=== PATIENT | male | born 1995 | race Caucasian/White ===

== ENCOUNTER 2018-10-21 12:53 | Emergency (ER) | payer OTHER ==
[~2018-10-21] VITALS: Ht 170.2 cm; Wt 86.2 kg
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
--- NOTE | 2018-10-21 14:09 | NUR ---
Patient discharged to home in stable condition. Written and verbal after care instructions given. Patient verbalizes understanding of instruction.
[2018-10-21 14:10] VITALS: BP 144/70
== END 2018-10-21 14:10 | disposition home or self-care (01) ==
LOC: ER 12:58
DX: S60.222A Contusion of left hand, initial encounter (principal); S80.02XA Contusion of left knee, initial encounter; S90.31XA Contusion of right foot, initial encounter; F20.9 Schizophrenia, unspecified; F31.9 Bipolar disorder, unspecified; Z88.0 Allergy status to penicillin; V03.99XA Pedestrian with other conveyance injured in collision with car, pick-up truck or van, unspecified whether traffic or nontraffic accident, initial encounter; Y93.89 Activity, other specified; Y92.413 State road as the place of occurrence of the external cause; Y99.8 Other external cause status
CPT/HCPCS: 73130-TC; 73564-TC; 73630-TC

== ENCOUNTER 2019-01-03 15:05 | Emergency (ER) | payer OTHER ==
[~2019-01-03] VITALS: Ht 170.2 cm; Wt 84.4 kg
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
--- NOTE | 2019-01-03 16:34 | NUR ---
BARLEY STEEPER AT BEDSIDE
--- NOTE | 2019-01-03 16:35 | NUR ---
URINE COLLECTED SENT TO LAB
[2019-01-03 16:43] LABS: BASOPHILS # (AUTO) 0.1 /CMM (0.0-0.2); NEUTROPHILS # (AUTO) 6.4 /CMM (1.8-8.9)
[2019-01-03 16:46] LABS: BASOPHILS % (AUTO) 0.6 % (0.0-2.0); EOSINOPHILS % (AUTO) 1.8 % (0.0-6.0); HEMATOCRIT 44 % (39-51); LYMPHOCYTES # (AUTO) 2.4 /CMM (0.8-4.8); LYMPHOCYTES % (AUTO) 23.6 % (20.0-44.0); MEAN CORPUSCULAR HGB CONC 34 g/dl (31.0-36.0); MEAN CORPUSCULAR VOLUME 89 fL (80-96); MONOCYTES % (AUTO) 9.8 % (2.0-12.0); NEUTROPHILS % (AUTO) 64.2 % (43.0-81.0); PLATELET COUNT (AUTO) 273 /CMM (150-450); RED BLOOD CELL COUNT(AUTO) 4.96 MIL/uL (4.5-6.0)
[2019-01-03 16:51] LABS: CALCIUM, SERUM 8.8 mg/dL (8.5-10.1); CARBON DIOXIDE 30 mmol/L (21-32); CHLORIDE 103 mmol/L (98-107); CREATININE 0.8 mg/dL (0.6-1.3); GLUCOSE 109 mg/dL (74-106); POTASSIUM 4.5 mmol/L (3.5-5.1); SODIUM SERUM 140 mmol/L (136-145); UREA NITROGEN, BLOOD 9 mg/dL (7-18)
[2019-01-03 17:04] LABS: APPEARANCE,URINE Clear (CLEAR); BILIRUBIN,URINE Negative (NEGATIVE); BLOOD, URINE Trace-intact Ery/uL (NEGATIVE); COLOR,URINE Yellow (YELLOW); KETONES,URINE Negative (NEGATIVE); LEUKOCYTE ESTERASE ,URINE Negative (NEGATIVE); NITRITE, URINE Negative (NEGATIVE); PH,URINE 6.5 (5.0-8.0); PROTEIN,URINE Negative (NEGATIVE); UGLUCOSE Negative (NEGATIVE); UROBILINOGEN,URINE 0.2 EU/dL (0.2)
[2019-01-03 17:05] LABS: ALANINE AMINOTRANSFERASE 48 U/L (12-78); ALBUMIN 4.5 g/dL (3.4-5.0); ALKALINE PHOSPHATASE 124 U/L (46-116); ASPARTATE AMINOTRANSFERASE 29 U/L (15-37); BILIRUBIN,DIRECT 0.1 mg/dL (0.0-0.2); BILIRUBIN,TOTAL 0.2 mg/dL (0.2-1.0); TOTAL PROTEIN, SERUM 8.1 g/dL (6.4-8.2)
[2019-01-03 17:06] LABS: ACETAMINOPHEN 0 ug/ml (10-30); SALICYLATE 1.2 mg/dL (2.8-20.0)
[2019-01-03 17:07] LABS: ALCOHOL, BLOOD < 3 mg/dL (0-0)
[2019-01-03 17:24] LABS: BACTERIA,URINE Few /HPF (None Seen); SQUAMOUS EPITHELIAL CELL,UR Few /HPF (None Seen); WBC,URINE 0-2 /HPF (0-3)
--- NOTE | 2019-01-03 18:00 | NUR ---
CALLED JACQUELINE FOR CRISIS EVALUATION
--- NOTE | 2019-01-03 18:22 | NUR ---
WAITING FOR CRISIS TEAM TO COME BY. PATIENT WANTS TO BE PLACED ON VOLUNTARY HOLD. DANGER TO OTHERS
--- NOTE | 2019-01-03 18:22 | NUR ---
DINNER PROVIDED AT BEDSIDE
--- NOTE | 2019-01-03 18:58 | NUR ---
PINKY AT BEDSIDE
[2019-01-03 21:15] VITALS: BP 144/84
--- NOTE | 2019-01-03 21:19 | NUR ---
REPORT GIVEN TO JOSEY GENTILE FOR REPORT. ROOM 8B.
--- NOTE | 2019-01-03 22:29 | NUR ---
[phone]
--- NOTE | 2019-01-04 00:39 | NUR ---
EMT OF AMBULSrinivasan AT BEDSIDE TO EQUINE DENTIST THE PATIENT. REPORT GIVEN. PATIENT IS TO BE TRANSFERED TO [facility], ROOM 8B. TRANSPORTED VIA GURNEY. PATIENT CLAIMED ALL BELONGINGS NOTED AND ACCOUNTED FOR. LEFT ER AT THIS TIME.
== END 2019-01-04 00:39 ==
LOC: ER 15:07
DX: S16.1XXA Strain of muscle, fascia and tendon at neck level, initial encounter (principal); S70.01XA Contusion of right hip, initial encounter; S69.81XA Other specified injuries of right wrist, hand and finger(s), initial encounter; R45.851 Suicidal ideations; F41.9 Anxiety disorder, unspecified; F31.9 Bipolar disorder, unspecified; F20.0 Paranoid schizophrenia; Z88.0 Allergy status to penicillin; W18.09XA Striking against other object with subsequent fall, initial encounter; Y93.01 Activity, walking, marching and hiking; Y92.89 Other specified places as the place of occurrence of the external cause; Y99.8 Other external cause status
CPT/HCPCS: 36415; 73110; 73501; 80048; 80076; 80305; 80307; 80329; 81001; 85025; 99285; G0480; 81000-TC

== ENCOUNTER 2019-08-27 17:49 | Inpatient (IN) | payer OTHER ==
[~2019-08-27] VITALS: Ht 170.2 cm; Wt 67.1 kg
[2019-08-27] MEDS ORDERED: ONDANSETRON HCL/PF 4 MG/2 ML VIAL ONE (18:13)
[2019-08-27 18:23] LABS: BASOPHILS % (AUTO) 0.1 % (0.0-2.0); EOSINOPHILS % (AUTO) 0.1 % (0.0-6.0); HEMATOCRIT 47 % (39-51); HEMOGLOBIN 15.8 g/dL (13.5-17.5); LYMPHOCYTES # (AUTO) 0.8 /CMM (0.8-4.8); LYMPHOCYTES % (AUTO) 3.5 % (20.0-44.0); MEAN CORPUSCULAR HGB CONC 34 g/dl (31.0-36.0); MEAN CORPUSCULAR VOLUME 89 fL (80-96); MONOCYTES # (AUTO) 1.3 /CMM (0.1-1.30); MONOCYTES % (AUTO) 6.1 % (2.0-12.0); NEUTROPHILS # (AUTO) 19.4 /CMM (1.8-8.9); NEUTROPHILS % (AUTO) 90.2 % (43.0-81.0); PLATELET COUNT (AUTO) 226 /CMM (150-450); RED BLOOD CELL COUNT(AUTO) 5.24 MIL/uL (4.5-6.0); WHITE BLOOD COUNT (AUTO) 21.6 K/uL (4.3-11.0)
[2019-08-27] MEDS ORDERED: ONDANSETRON HCL/PF 4 MG/2 ML VIAL IVP ONE (18:30)
[2019-08-27] MEDS ORDERED: IV NS 0.9% 1,000 ML BAG IV ONE (18:30)
[2019-08-27] MEDS ORDERED: LORAZEPAM INJ 2 MG/ML VIAL IV ONE (18:30)
[2019-08-27 18:32] LABS: CALCIUM, SERUM 9.3 mg/dL (8.5-10.1); CARBON DIOXIDE 23 mmol/L (21-32); CHLORIDE 102 mmol/L (98-107); CREATININE 1.3 mg/dL (0.6-1.3); GLUCOSE 139 mg/dL (74-106); POTASSIUM 3.6 mmol/L (3.5-5.1); SODIUM SERUM 140 mmol/L (136-145); UREA NITROGEN, BLOOD 21 mg/dL (7-18)
[2019-08-27] MEDS ORDERED: LORAZEPAM INJ 2 MG/ML VIAL ONE (18:33)
[2019-08-27 18:38] LABS: ALANINE AMINOTRANSFERASE 35 U/L (12-78); ALBUMIN 4.6 g/dL (3.4-5.0); ALCOHOL, BLOOD < 3 mg/dL (0-0); ALKALINE PHOSPHATASE 108 U/L (46-116); ASPARTATE AMINOTRANSFERASE 21 U/L (15-37); BILIRUBIN,DIRECT 0.3 mg/dL (0.0-0.2); BILIRUBIN,TOTAL 1.1 mg/dL (0.2-1.0); TOTAL PROTEIN, SERUM 8.3 g/dL (6.4-8.2)
[2019-08-27 18:40] LABS: ACETAMINOPHEN 0 ug/ml (10-30); SALICYLATE < 0.2 mg/dL (2.8-20.0)
[2019-08-27] MEDS ORDERED: HYDR-500 MT (18:51)
[2019-08-27] MEDS ORDERED: SERT50TA12 MT (18:51)
--- NOTE | 2019-08-27 18:52 | NUR ---
CALLED NURSING SUP FOR ICU BED.
[2019-08-27 18:53] LABS: APPEARANCE,URINE Clear (CLEAR); BILIRUBIN,URINE Negative (NEGATIVE); BLOOD, URINE Negative Ery/uL (NEGATIVE); COLOR,URINE Orange (YELLOW); KETONES,URINE 15 (NEGATIVE); LEUKOCYTE ESTERASE ,URINE Negative (NEGATIVE); NITRITE, URINE Negative (NEGATIVE); PROTEIN,URINE 30 mg/dl (NEGATIVE); UGLUCOSE Negative (NEGATIVE); UROBILINOGEN,URINE 0.2 EU/dL (0.2)
--- NOTE | 2019-08-27 18:54 | NUR ---
BIBRA60 FROM HOME, "COLAPSED" POSSIBLE OVERDOSE TO SEROQUEL, PER EMS PT WAS BELLIGERENT UPON EMS ARRIVAL GIVEN VERSED 5MG IM. BG 140. PT WILL OPEN EYES UPON VERBAL STIMULI & WILL GO BACK TO SLEEP. RR EVEN & UNLABORED. PLACED ON FINANCIAL AID OFFICER, ST. PT SEEN & EVAL'D BY AC MIRELES. MEDICATED ORDERED. PLACED ON SZ PRECAUTION. SITTER AT BS.
--- NOTE | 2019-08-27 19:30 | NUR ---
PT ASLEEP, EYES CLOSED BUT EASILY AROUSABLE BY VERBAL STIMULI AND WILL GO BACK TO SLEEP. RR EVEN & UNLABORED. NO RESP DISTRESS NOTED. WILL CONT TO MONITOR.
--- NOTE | 2019-08-27 19:33 | NUR ---
PAGED [facility].
--- NOTE | 2019-08-27 19:34 | NUR ---
NURSING SUP GAVE ICU 263.
--- NOTE | 2019-08-27 19:46 | NUR ---
SPOKE TO ALTA, MANAGER INPATIENT FOR [employer] MANAGEMENT.
[2019-08-27 19:51] LABS: BACTERIA,URINE Rare /HPF (None Seen); RBC,URINE 0-2 /HPF (0-2); SQUAMOUS EPITHELIAL CELL,UR Rare /HPF (None Seen)
[2019-08-27 19:52] LABS: MUCUS,URINE Few /LPF (None Seen); URINE AMORPHOUS URATE Few /HPF (None Seen)
--- NOTE | 2019-08-27 19:57 | NUR ---
VERONIKA DEE (BROTHER)
--- NOTE | 2019-08-27 20:18 | NUR ---
REPORT GIVEN TO JOSEY LANDRUM FOR HERLINDA.
[2019-08-27] MEDS ORDERED: IV NS 0.9% 1,000 ML IV PRN (20:58)
[2019-08-27] MEDS ORDERED: ACETAMINOPHEN 650 MG/SUPP.RECT RC PRN (21:00)
[2019-08-27] MEDS ORDERED: ONDANSETRON HCL/PF 4 MG/2 ML VIAL IVP PRN (21:00)
--- NOTE | 2019-08-27 21:30 | NUR ---
PT ASLEEP, EASILY AWAKEN BY VERBAL STIMULI, WILL OPEN EYES & WILL GO BACK TO SLEEP. RR EVEN & UNLABORED. ON TELE, ST. WILL CONT TO MONITOR.
--- NOTE | 2019-08-27 22:18 | NUR ---
PT DOWNGRADED TO [facility]. REPORT GIVEN TO JOSEY PIPER FOR HERLINDA
[2019-08-27 22:35] VITALS: BP 113/60
--- NOTE | 2019-08-27 23:06 | NUR ---
RN NOTE SPOKE TO JOHN FROM POISON CONTROL. UPDATED ON PATIENT'S CURRENT STATUS AND RESULTED EKG. WITH RECCOMENDATION TO DO REPEAT 12 LEAD EKG AND FOLLOW UP.
[2019-08-27] MEDS: IV NS 0.9% 1,000 ML IV PRN (23:18)
--- NOTE | 2019-08-27 23:18 | NUR ---
RN NOTE SEEN AND EXAMINED BY DR. ALATORRE WITH NEW ORDER TO INCREASE FLUIDS TO NS @ 150CC/HOUR. ORDER NOTED AND CARRIED OUT.
--- NOTE | 2019-08-27 23:30 | NUR ---
RN NOTE NEW ORDER FROM DR. ALATORRE. IF QTC > 500, ADMINISTER 2G OF MAGNESIUM. IF QRS > 120, ADMINISTER 2 AMPS OF BICARB. ORDER NOTED AND CARRIED OUT.
--- NOTE | 2019-08-27 23:37 | NUR ---
RN NOTE 12 LEAD EKG RESULTED. QRS 114. QTC 465. SPOKE TO JOHN FROM POISON CONTROL WITH RECOMMENDATION TO DO REPEAT 12 LEAD EKG IN 2 HOURS. ORDER NOTED AND CARRIED OUT.
[2019-08-28] VITALS: BP 118/68
[2019-08-28] MEDS: LORAZEPAM INJ 2 MG/ML VIAL IV PRN (01:10)
--- NOTE | 2019-08-28 01:10 | NUR ---
RN NOTE HEART RATE NOTED TO BE 135-140. PT NOTED OT BE SLIGHTLY AGITATED. ADMINISTERED ATIVAN IV PRN ORDERED. WILL CONTINUE TO MONITOR PATIENT.
[2019-08-28] MEDS ORDERED: Magnesium 1GM/D5W 100ML PREMIX PIGGYBACK IV ONE (02:00)
[2019-08-28] MEDS ORDERED: SODIUM BICARBONATE SYR 50 MEQ/50 ML DISP.SYRIN IV ONE (02:00)
--- NOTE | 2019-08-28 02:03 | NUR ---
RN NOTE 12 LEAD EKG RESULTED, NOTIFIED POISON CONTROL WITH ORDER TO ADMINISTER 2 AMPS OF BICARB AND 2G OF MAGNESIUM IV. ORDER CARRIED OUT.
[2019-08-28] MEDS ORDERED: Magnesium 1GM/D5W 100ML PREMIX 200 ML IV ONE (02:12)
[2019-08-28] MEDS ORDERED: SODIUM BICARBONATE SYR 50 MEQ/50 ML DISP.SYRIN ONE ×2 (02:13→02:14)
--- NOTE | 2019-08-28 02:17 | NUR ---
RN NOTE WITH ORDER TO DO REPEAT EKG AT 0330.
[2019-08-28 05:58] LABS: BASOPHILS % (AUTO) 0.1 % (0.0-2.0); HEMATOCRIT 42 % (39-51); HEMOGLOBIN 14.2 g/dL (13.5-17.5); LYMPHOCYTES # (AUTO) 0.5 /CMM (0.8-4.8); LYMPHOCYTES % (AUTO) 2.6 % (20.0-44.0); MEAN CORPUSCULAR HGB CONC 34 g/dl (31.0-36.0); MEAN CORPUSCULAR VOLUME 88 fL (80-96); MONOCYTES # (AUTO) 1.1 /CMM (0.1-1.30); MONOCYTES % (AUTO) 5.2 % (2.0-12.0); NEUTROPHILS # (AUTO) 19.3 /CMM (1.8-8.9); NEUTROPHILS % (AUTO) 92.1 % (43.0-81.0); PLATELET COUNT (AUTO) 201 /CMM (150-450); RED BLOOD CELL COUNT(AUTO) 4.74 MIL/uL (4.5-6.0); WHITE BLOOD COUNT (AUTO) 20.9 K/uL (4.3-11.0)
[2019-08-28] MEDS ORDERED: Magnesium 1GM/D5W 100ML PREMIX 100 ML IV ONE (06:12)
[2019-08-28 07:08] LABS: MAGNESIUM 2.1 mg/dL (1.8-2.4); PHOSPHORUS 2.4 mg/dL (2.5-4.9)
[2019-08-28 07:09] LABS: THYROID STIMULATING HORMONE 2.074 uIU/mL (0.358-3.74)
--- NOTE | 2019-08-28 07:15 | NUR ---
RN OPENING NOTE Received patient awake in bed with 1:1 sitter. He just pulled out his R hand IV. Put pressure on site to stopped bleeding assisted by SR. MANAGER CORPORATE COMMUNICATIONS. Patient is AO x1 with signs of confusion. Noted with jerking movements. Tele reading ST 140 bpm. On a FC draining red to orange urine by gravity. Note with multiple tattoos on both upper extremities. There's an order for NS @ 150ml/hr patient is NPO. Safety measures reinforced. Padded side rails up x4. Bed locked and on lowest position. Will cont to monitor.
[2019-08-28 07:17] LABS: CALCIUM, SERUM 8.1 mg/dL (8.5-10.1); CREATININE 1.1 mg/dL (0.6-1.3); POTASSIUM 3.5 mmol/L (3.5-5.1)
[2019-08-28 08:00] VITALS: BP 123/53
[2019-08-28] MEDS: PANTOPRAZOLE 40 MG VIAL IV SCH (09:04)
[2019-08-28] MEDS: IV NS 0.9% 1,000 ML IV PRN ×2 (09:59→21:21)
--- NOTE | 2019-08-28 10:30 | NUR ---
FAXED FACE SHEET TO [facility]. INFORMED PATIENT IS FOR PSYCH CONSULT FOR DR. CARDOSO.
--- NOTE | 2019-08-28 10:46 | NUR ---
SPOKE TO POISON CONTROL REP ZEKE REGARDING EKG RESULTS. THEY WANT TO ORDER MAGNESIUM LEVEL AND POTASSIUM LEVEL. WILL INFORM YAKOV.
--- NOTE | 2019-08-28 11:00 | NUR ---
INFORMED YAKOV POISON CONTROL REQ TO HAVE MAG AND K LEVELS REPEATED BEFORE GIVING MAGNESIUM 2G PER ORDER. QTC IS 507
[2019-08-28 12:00] VITALS: BP 133/81
--- NOTE | 2019-08-28 12:20 | NUR ---
BELONGINGS PICKED UP BY FATHER MARLON. SIGNED BELONGING FORM AND PLACED IN THE CHART.
--- NOTE | 2019-08-28 12:30 | NUR ---
RECEIVED CALL FROM ED [facility] SPOKE TO APRON WORKER. SHE APOLOGIZED FOR PATIENT STILL TRYING TO KILL HIMSELF. PT WAS BEING SEEN THERE AND ACCDG TO HER THE PATIENT ALREADY TOLD THEM HIS INTENT. PT WAS GIVEN SUPPORT INFORMATION BUT PT STILL END UP DOING IT. PER APRON WORKER THEIR MD WILL CALL US TO GET UPDATE.
[2019-08-28] MEDS ORDERED: Sodium Phosphate 15 MMOL in IV NS 0.9% 245 ML IV SCH (15:00)
[2019-08-28] MEDS ORDERED: PIPERACILLIN /TAZOBACTAM 3.375 G in IV D5W 50 ML IV SCH (15:00)
[2019-08-28] MEDS ORDERED: CEFEPIME 1 GM in IV D5W 50 ML IV SCH (15:30)
[2019-08-28 16:00] VITALS: BP 133/98
--- NOTE | 2019-08-28 16:36 | NUR ---
LAB DRAW FOR MAGNESIUM & POTASSIUM WAS CANCELLED UNKNOWN HOW. INFORMED NAGY AND POISON CONTROL OF QTC 122 AND QRSD 469. SPOKE TO ANNAMARIAM OF POISON CONTROL ORDERED EKG AT LEAST EVERY 4 HRS. CA >9, K >4 AND MG >2 BEFORE GIVING BICARB.
[2019-08-28] MEDS: CEFEPIME 2 GM in IV D5W 100 ML IV SCH (17:04)
[2019-08-28 17:38] LABS: CALCIUM, SERUM 8.8 mg/dL (8.5-10.1); MAGNESIUM 2.3 mg/dL (1.8-2.4); POTASSIUM 3.8 mmol/L (3.5-5.1)
--- NOTE | 2019-08-28 18:17 | NUR ---
spoke to poison control. ordered another ekg. if still prolonged, give 2 amp of bicarb and get order for potassium replacement. placed order for stat ekg.
--- NOTE | 2019-08-28 19:22 | NUR ---
RN CLOSING NOTE Pt in bed awake. On NC 2L tolerating well no signs of distress. Still noted with involuntary jerky movements. On bilateral wrist soft restraints. All due meds given. Tele reading 130-140s. No signs of pain or discomfort. Detailed report given to maintenance technician 3rd shift nurse for steven.
[2019-08-28 20:00] VITALS: BP 155/100
[2019-08-28 20:23] VITALS: BP 155/100
--- NOTE | 2019-08-28 20:49 | NUR ---
RN NOTE CALLED POISON CONTROL AND SPOKE TO MIHAI. UPDATED ON RESULTED EKG. QRS IS 110 AND QTC IS 449. VITAL SIGNS AND FOLLOWS: TEMP 98.5, HR 100 RESPIRATIONS 19, O2 SATURATION 98% WHILE ON 2L OF O2 VIA NC, BLOOS PRESSURE 155/100. PT AWAKE AND ALERT AND PHYSICALLY RESPONSIVE TO VERBAL AND TACTILE STIMULI BUT MAKES INCOMPREHENSIBLE SOUNDS. PER MIHAI, ORDER REPEAT EKG AT 0000 AND CONTINUE TO MONITOR. ORDER NOTED AND CARRIED OUT.
[2019-08-29] VITALS (7 sets, daily range): BP systolic 117–122; BP diastolic 57–72
--- NOTE | 2019-08-29 00:08 | NUR ---
RN NOTE 12 LEAD EKG RESULTED. QRS 116 AND QTC 488. CALLED POISON CONTROL AND SPOKE TO JOHN. UPDATED ON PATIENT'S LATEST POTASSIUM, CALCIUM AND MAGNESIUM LEVELS. DISCUSSED MEDICATIONS THAT WERE ADMINISTERED IN THE LAST 8 HOURS AND OVERALL PATIENT'S STATUS. WITH RECOMMENDATION TO DO REPEAT 12 LEAD EKG AT 0400 AND TO CONTINUE TO MONITOR PATIENT. ORDER NOTED AND CARRIED OUT.
--- NOTE | 2019-08-29 00:46 | NUR ---
RN NOTE ENDORSED TO JOSEY BOBO FOR CONTINUATION OF CARE.
--- NOTE | 2019-08-29 01:00 | NUR ---
chidi rn notes Received pts and report from rn velma for continuity of care.
--- NOTE | 2019-08-29 04:00 | NUR ---
chidi rn notes. spoke to Dr Jayden silva with order of 1:1 sitter.nursing locker room supervisor efra made aware.
[2019-08-29] MEDS: IV NS 0.9% 1,000 ML IV PRN ×3 (04:17→18:20)
--- NOTE | 2019-08-29 04:30 | NUR ---
chidi rn notes Spoke to guille from poison control ([phone]) relayed ekg result sinu tach, QTC 442 QRS 102 with nno at this time ,continue to monitor pts.
[2019-08-29] MEDS: LORAZEPAM INJ 2 MG/ML VIAL IV PRN ×2 (04:57→13:18)
--- NOTE | 2019-08-29 04:57 | NUR ---
chidi rn notes Pts getting agitated and restless. ativan 1 mg iv given as ordered.sitter at bedside.
--- NOTE | 2019-08-29 06:25 | NUR ---
chidi rn notes Pts remains in bed on bilateral soft wrist restraint . no steven noted ,all needs attended too. remains on npo status , continue on ns at 150cc/hr infusing well .with 1:1 sitter at bedside ,will endorse to rn day shift for continuity of care.
[2019-08-29 06:42] LABS: BASOPHILS % (AUTO) 0.1 % (0.0-2.0); EOSINOPHILS % (AUTO) 0.3 % (0.0-6.0); HEMATOCRIT 40 % (39-51); HEMOGLOBIN 13.3 g/dL (13.5-17.5); LYMPHOCYTES # (AUTO) 0.7 /CMM (0.8-4.8); LYMPHOCYTES % (AUTO) 3.4 % (20.0-44.0); MEAN CORPUSCULAR HGB CONC 33 g/dl (31.0-36.0); MEAN CORPUSCULAR VOLUME 90 fL (80-96); MONOCYTES # (AUTO) 1.4 /CMM (0.1-1.30); MONOCYTES % (AUTO) 7.2 % (2.0-12.0); NEUTROPHILS # (AUTO) 17.4 /CMM (1.8-8.9); PLATELET COUNT (AUTO) 176 /CMM (150-450); RED BLOOD CELL COUNT(AUTO) 4.43 MIL/uL (4.5-6.0); WHITE BLOOD COUNT (AUTO) 19.5 K/uL (4.3-11.0)
[2019-08-29 07:01] LABS: CALCIUM, SERUM 8.7 mg/dL (8.5-10.1); MAGNESIUM 2.1 mg/dL (1.8-2.4); POTASSIUM 3.9 mmol/L (3.5-5.1)
--- NOTE | 2019-08-29 07:10 | NUR ---
RN OPENING NOTE RECEIVED PATIENT IN BED WITH A 1;1 SITTER. PATIENT OS AOX1 , CONFUSED AND NOTED JERKING MOVEMENTS.TELE READING SN/ST A2 140'S . PATIENT ON A AVALOS DRAINING RED TO DARK ORANGE BY GRAVITY. PATIENT ON 2L N/C 02 @99% NO RESPIRATORY DISTRESS. SAFETY MEASURES REINFORCED, SIDERAILS UP X 4 , BED LOCKED ON LOWEST POSITION. WILL CONTINUE TO MONITOR.
[2019-08-29] MEDS: CEFEPIME 2 GM in IV D5W 100 ML IV SCH ×2 (09:12→21:06)
[2019-08-29] MEDS: PANTOPRAZOLE 40 MG VIAL IV SCH (09:12)
--- NOTE | 2019-08-29 12:31 | NUR ---
RN NOTES SPOKE WITH DR. CARDOSO VIA CHARGE PHONE WITH PATIENT. PT IS NOT ALERT AND IS NOT RESPONDING TO DR CARDOSO QUESTIONS. NO NEW ORDERS AT THIS TIME, WILL CONTINUE TO MONITOR
--- NOTE | 2019-08-29 13:22 | NUR ---
RN NOTES PT IS GETTING AGITATED AND DOES NOT FOLLOW VERBAL COMMAND. PRN ATIVAN 1 MG GIVEN IV PUSH, WILL CONTINUE TO MONITOR
--- NOTE | 2019-08-29 14:30 | NUR ---
RN NOTES SPOKE WITH POISON CONTROL AND UPDATED THEM ON STATUS OF PT, RECOMMENDED REPEAT EKG. EKG HAS BEEN ORDERED FOR 1999, WILL CONTINUE TO MONITOR
--- NOTE | 2019-08-29 19:15 | NUR ---
PLUSH BRUSHER OPENING NOTES: RECEIVED PATIENT IN BED, ASLEEP. WITH THE 1:1 SITTER AT THE BEDSIDE. WITH BILATERAL SOFT WRIST RESTRAINTS ON. HOB ELEVATED AT 30 DEGREES AT ALL TIMES. NPO, SITTER AWARE. WITH AVALOS CATHTER INTACT,DRAINING TO AN CHRISTINE COLORED URINE. BED IN LOWEST AND LOCKED POSITION.
--- NOTE | 2019-08-29 19:23 | NUR ---
RN CLOSING NOTE WILL ENDORSE TO PM NURSE.PT IS IN BED COMFORTABLE. NO SIGNS OF RESPIRATORY DISTRESS. SAFETY MEASURES IMPLEMENTED, BED IN LOWEST POSITION, LOCKED, SIDE RAILS UP, CALL LIGHT WITHIN REACH. ALL NEEDS AND ORDERS ADDRESSED DURING THE SHIFT.
--- NOTE | 2019-08-29 20:00 | NUR ---
PATIENT IS AWAKE, RESTLESS, MUMBLES, CALM DOWN FOR A WHILE, TRIED TO GET OUT OF BED. CONFUSED.
--- NOTE | 2019-08-29 20:30 | NUR ---
IV ON THE RIGHT G20 INSERTED BY STEFANIE BOBO.
--- NOTE | 2019-08-29 20:30 | NUR ---
PAGED EPIC DR SOLANO
--- NOTE | 2019-08-29 20:32 | NUR ---
EKG RESULTS= TQO=649, QT/BJQ=641/561. CN JERAMIE AVINA MD PAGED AND WAITING FOR THE CALL.
--- NOTE | 2019-08-29 20:57 | NUR ---
telephone station installer notes pts noted with temp of 102 tylenol cooling measures applied .v/s bp 117/59 hr 130 rr 20 temp 102 02 sat 99%, bed bath given will continue to monitor pts.
--- NOTE | 2019-08-29 21:00 | NUR ---
CALLED POISON CONTROL AND RELAYED RESULTS OF EKG AND THE CHEM PANEL AND THE V/S, UPDATED THE STATUS OF THE PATIENT.RECOMMENDING TO GIVE POTASSIUM AND CALCIUM AND MAGNESIUM. STEFANIE BOBO MADE AWARE.
--- NOTE | 2019-08-29 21:06 | NUR ---
PAGED DR ALATORRE AGAIN.
--- NOTE | 2019-08-29 21:18 | NUR ---
EKG RESULTS AND THE RECOMMENDATIONS OF THE POISON CONTROL TEXTED TO DR ALATORRE. WAITING FOR THE CALL BACK. COOLING MEASURES RENDERED BY THE COMMISSARY CLERK AND THE SITTER.
[2019-08-29] MEDS ORDERED: POTASSIUM CHLORIDE 10 MEQ/50 ML PREMIXED IVPB FOR PERIPHERAL LINE IV ONE (22:00)
[2019-08-29] MEDS ORDERED: Calcium Gluconate 1GM/10ML 4.65 MEQ in IV NS 0.9% 100 ML IV ONE (22:00)
[2019-08-29] MEDS ORDERED: Magnesium 1GM/D5W 100ML PREMIX PIGGYBACK IV ONE (22:00)
[2019-08-29] MEDS ORDERED: Calcium Gluconate 0.465 MEQ/ML VIAL IV ONE (23:08)
--- NOTE | 2019-08-29 23:10 | NUR ---
PATIENT HAS HEMATURIA, NOTIFIED DR ALATORRE, WAITING FOR THE RESPONSE.
[2019-08-30] VITALS: BP 130/92
--- NOTE | 2019-08-30 00:19 | NUR ---
PATIENT'S URINE CAME OUT FROM THE AVALOS CATHETER TUBING IS NOW CLEAR YELLOW URINE, NOTIFIED DR ALATORRE.
[2019-08-30] MEDS: LORAZEPAM INJ 2 MG/ML VIAL IV PRN ×3 (01:53→19:44)
--- NOTE | 2019-08-30 01:53 | NUR ---
ACCORDING TO THE SITTER, PATIENT IS MORE AGITATED AND TRYING TO GET OUT OF BED AND TRIED TO KICK HER, AND MUMBLES, NO UNUSUAL MOVEMENTS. ATIVAN 1 MG IV GIVEN.
--- NOTE | 2019-08-30 03:32 | NUR ---
EKG RESULTS RELAYED TO THE POISON CONTROL WITH RECOMMENDATIONS GIVEN, INFORMED DR ALATORRE. WAITING FOR THE RESPONSE. EKG AEB=102, QT/YSG=908/[address] ALATORRE THRU TEXTS MESSAGES. WAITING FOR THE RESPONSE. EKG RESULT ATTACHED TO THE CHART.
[2019-08-30] MEDS ORDERED: CYPROHEPTADINE HCL 4 MG TABLET PO ONE ×2 (04:30→07:00)
[2019-08-30] MEDS ORDERED: CYPROHEPTADINE HCL 4 MG TABLET PO PRN (04:30)
--- NOTE | 2019-08-30 05:34 | NUR ---
EKG RESULTS= SUPRAVENTRICULAR TACHYCARDIA, NCGF=702, BCD=666, QT/VVF=521/[address] ALATORRE.
--- NOTE | 2019-08-30 06:10 | NUR ---
NGT INSERTED ON THE RIGHT NARE BY STEFANIE BOBO. CALLED XRAY DEPARTMENT FOR CHEST XRAY FOR PLACEMENT CHECK.
--- NOTE | 2019-08-30 06:35 | NUR ---
CYPROHEPTADINE MG IS NOT AVAILABLE YET, CHARGE NURSE JERAMIE MERRITT.
--- NOTE | 2019-08-30 06:35 | NUR ---
ASE CERTIFIED TECHNICIAN CLOSING NOTES: PATIENT IN BED, AWAKE, A/O X1, WITH SLIGHTLY RESTLESS AT THIS TIME. WITH THE SITTER AT THE BEDSIDE. NO SOB NOTED. NO COMPLAIN OF PAIN. NO SEIZURES NOTED. WITH BILATERAL SOFT WRISTS RESTRAINTS.
--- NOTE | 2019-08-30 07:00 | NUR ---
MEDS CYPROHEPTADINE WAS NOT AVAILABLE, ENDORSED TO JOSEY CAMP. POISON CONTROL NEEDS TO BE CALLED FOR THE LATEST EKG TODAY, ENDORSED TO THE NEXT SHIFT RN.
--- NOTE | 2019-08-30 07:25 | NUR ---
RN OPENING NOTES RECEIVED PATIENT AWAKE AND RESTING IN BED WITH ONE TO ONE SITTER AT BEDSIDE. PT IS AOX1, VERBAL BUT IS INCOHERENT WHEN SPEAKING, AND ON BED REST. HE IS ON 2L OF OXYGEN VIA NC, TOLERATING WELL, NO SOB OR RESP DISTRESS. SKIN IS INTACT. IV SITES ON LFA 22 G AND RHAND 20 G IS PATENT AND INTACT, INFUSING NS AT 150 ML.HR. SAFETY MEASURES HAVE BEEN IMPLEMENTED, CALL LIGHT IS WITHIN REACH, BED IS IN LOWEST AND LOCKED POSITION, SIDE RAILS UP X2, WILL CONTINUE TO MONITOR FOR ANY CHANGES
--- NOTE | 2019-08-30 07:45 | NUR ---
RN NOTES NIGHT RN UNABLE TO ADMIN 0430 AND 0700 DOSE OF 6 MG PERIACTIN. SPOKE WITH [facility], AND WAS GIVEN THE OK TO ADMIN LATE DOSES ORDERED ONCE MEDICATION IS ON HAND. WILL CONTINUE TO MONITOR
[2019-08-30 08:00] VITALS: BP 131/71
[2019-08-30] MEDS: PANTOPRAZOLE 40 MG VIAL IV SCH (09:12)
[2019-08-30] MEDS: CEFEPIME 2 GM in IV D5W 100 ML IV SCH ×2 (09:12→20:32)
[2019-08-30 10:44] LABS: BASOPHILS % (AUTO) 0.1 % (0.0-2.0); EOSINOPHILS % (AUTO) 0.1 % (0.0-6.0); HEMATOCRIT 39 % (39-51); LYMPHOCYTES # (AUTO) 0.9 /CMM (0.8-4.8); LYMPHOCYTES % (AUTO) 4.6 % (20.0-44.0); MEAN CORPUSCULAR HGB CONC 34 g/dl (31.0-36.0); MEAN CORPUSCULAR VOLUME 90 fL (80-96); MONOCYTES # (AUTO) 1.3 /CMM (0.1-1.30); MONOCYTES % (AUTO) 7.1 % (2.0-12.0); NEUTROPHILS # (AUTO) 16.7 /CMM (1.8-8.9); NEUTROPHILS % (AUTO) 88.1 % (43.0-81.0); PLATELET COUNT (AUTO) 187 /CMM (150-450); RED BLOOD CELL COUNT(AUTO) 4.32 MIL/uL (4.5-6.0)
[2019-08-30 11:04] LABS: ALBUMIN 3.3 g/dL (3.4-5.0); BILIRUBIN,TOTAL 1.4 mg/dL (0.2-1.0); CALCIUM, SERUM 8.8 mg/dL (8.5-10.1); CREATININE 0.9 mg/dL (0.6-1.3); PHOSPHORUS 3.2 mg/dL (2.5-4.9); POTASSIUM 3.8 mmol/L (3.5-5.1); TOTAL PROTEIN, SERUM 7.9 g/dL (6.4-8.2)
[2019-08-30 12:00] VITALS: BP 128/70
[2019-08-30] MEDS: IV NS 0.9% 1,000 ML IV PRN ×2 (13:52→20:33)
--- NOTE | 2019-08-30 15:00 | NUR ---
RN NOTES SPOKE WITH POISON CONTROL AND UPDATED THEM ON PT PROGRESS AND PLAN OF CARE, WILL CONTINUE TO MONITOR
[2019-08-30 16:00] VITALS: BP 132/70
--- NOTE | 2019-08-30 16:49 | NUR ---
RN NOTES PERFORMED NURSING SWALLOW EVAL AT BEDSIDE. PT TOLERATES ICE CHIPS AND SIPS OF WATER WELL. PT WAS ABLE TO SWALLOW APPLE SAUCE WITHOUT ANY EVENTS OF CHOKING OR COUGHING. ADVANCED DIET TO PURRED PER DR. RAYMOND. PT REMOVED NG TUBE HIMSELF
--- NOTE | 2019-08-30 19:03 | NUR ---
RN CLOSING NOTES PATIENT IS RESTING IN BED COMFORTABLY AT THIS TIME. NO S.SX OF DISTRESS. PT NEEDS HAVE BEEN MET, VITAL SIGNS ARE STABLE, NO ACUTE CHANGES OCCURRED THROUGHOUT THE SHIFT. 1:1 SITTER AT BEDSIDE. SAFETY MEASURES HAVE BEEN IMPLEMENTED, CALL LIGHT IS WITHIN REACH, BED IS IN LOWEST AND LOCKED POSITION, SIDE RAILS UP X2, WILL ENDORSE TO NIGHTSHIFT RN FOR HERLINDA.
--- NOTE | 2019-08-30 19:05 | NUR ---
RN OPENING NOTES RECEIVED PATIENT AWAKE AND RESTING IN BED WITH ONE TO ONE SITTER AT BEDSIDE. PT IS AOX1, VERBAL BUT IS INCOHERENT WHEN SPEAKING, AND ON BED REST. HE IS ON 2L OF OXYGEN VIA NC, TOLERATING WELL, NO SOB OR RESP DISTRESS. SKIN IS INTACT. IV SITES ON LFA 22 G AND RHAND 20 G IS PATENT AND INTACT, INFUSING NS AT 150 ML.HR. ON TELE MONITOR WITH READING SINUS TACHY, WITH AVALOS CATH WITH YELLOW URINE FLOWING THRU GRAVITY SAFETY MEASURES HAVE BEEN IMPLEMENTED, CALL LIGHT IS WITHIN REACH, BED IS IN LOWEST AND LOCKED POSITION, SIDE RAILS UP X2, WILL CONTINUE TO MONITOR FOR ANY CHANGES
[2019-08-30 20:00] VITALS: BP 140/76
[2019-08-31] VITALS: BP 128/78
[2019-08-31] MEDS: IV NS 0.9% 1,000 ML IV PRN ×3 (03:01→16:43)
[2019-08-31] MEDS: LORAZEPAM INJ 2 MG/ML VIAL IV PRN (03:02)
[2019-08-31 04:00] VITALS: BP 126/76
--- NOTE | 2019-08-31 06:55 | NUR ---
RN CLOSING NOTES PT ASLEEP ON BED NO SIGN AND SYMPTOMS OF RESPIRATORY DISTRESS SPO2 >95%, TELE MONITOR READING SINUS RHYTHM 90'S-100'S, NO SIGNIFICANT CHANGES ON CONDITION NOTED, SITTER STILL IN BED SIDE ALL NEEDS ATTENDED SAFETY MEASURE MAINTAINED CALL LIGHT WITHIN REACH WILL ENDORSED TO AM SHIFT NURSE
--- NOTE | 2019-08-31 07:30 | NUR ---
RN OPENING NOTE Received patient awake in bed on NC 2L no signs of distress. Patient is AO x2 able to respond to questions appropriately. Say he still feels confused does not remember anything what happened a few days ago. Tele reading ST 112bpm. Nj catheter draining tea color urine by gravity. Has bilateral soft wrist restraints no signs of impaired skin integrity explained the importance of the restraints as for now. Has LFA #22 running NS @ 150ml/hr. Sitter at bedside. Safety measures reinforced. Call light within reach. Bed locked and on lowest position. Will cont to monitor.
[2019-08-31 08:00] VITALS: BP 134/72
[2019-08-31 08:00] LABS: BASOPHILS % (AUTO) 0.1 % (0.0-2.0); EOSINOPHILS % (AUTO) 2.7 % (0.0-6.0); HEMATOCRIT 37 % (39-51); HEMOGLOBIN 12.3 g/dL (13.5-17.5); LYMPHOCYTES % (AUTO) 8.5 % (20.0-44.0); MEAN CORPUSCULAR HGB CONC 34 g/dl (31.0-36.0); MEAN CORPUSCULAR VOLUME 89 fL (80-96); MONOCYTES # (AUTO) 1.2 /CMM (0.1-1.30); MONOCYTES % (AUTO) 9.8 % (2.0-12.0); NEUTROPHILS # (AUTO) 9.7 /CMM (1.8-8.9); NEUTROPHILS % (AUTO) 78.9 % (43.0-81.0); PLATELET COUNT (AUTO) 212 /CMM (150-450); RED BLOOD CELL COUNT(AUTO) 4.12 MIL/uL (4.5-6.0); WHITE BLOOD COUNT (AUTO) 12.3 K/uL (4.3-11.0)
[2019-08-31 08:22] LABS: BILIRUBIN,TOTAL 0.9 mg/dL (0.2-1.0); CALCIUM, SERUM 8.7 mg/dL (8.5-10.1); CREATININE 0.8 mg/dL (0.6-1.3); MAGNESIUM 2.1 mg/dL (1.8-2.4); PHOSPHORUS 3.1 mg/dL (2.5-4.9); POTASSIUM 3.7 mmol/L (3.5-5.1); TOTAL PROTEIN, SERUM 7.7 g/dL (6.4-8.2)
[2019-08-31] MEDS: CEFEPIME 2 GM in IV D5W 100 ML IV SCH ×2 (08:38→21:36)
[2019-08-31] MEDS: PANTOPRAZOLE 40 MG VIAL IV SCH (08:38)
--- NOTE | 2019-08-31 10:33 | NUR ---
STAT EKG ORDERED. SENT RESULTS TO DR. COX AWAITING RESPONSE. QTC 453 QRSD 120.
[2019-08-31 12:00] VITALS: BP 134/78
--- NOTE | 2019-08-31 13:26 | NUR ---
SEEN AND EVALUATED BY DR. RAYMOND AND DISCONTINUE RESTRAINT PER MD. PATIENT CALM AND ABLE TO COMPREHEND NOT TO PULL LINES.SITTER AT BEDSIDE.WILL CONTINUE TO MONITOR.
--- NOTE | 2019-08-31 14:28 | NUR ---
SPOKE TO POISON CONTROL REP SUERO. HE CALLED TO GET STATUS OF THE PATIENT. HE SAID CONT TO MONITOR EKG BEC QRSD IS 120. REPEAT EKG 4-6 HRS FROM THE LAST. WILL ORDER EKG.
[2019-08-31 16:00] VITALS: BP 125/72
--- NOTE | 2019-08-31 17:12 | NUR ---
EKG DONE QTC [address]SD [address] COX.
--- NOTE | 2019-08-31 18:40 | NUR ---
RN CLOSING NOTE Patient in bed awake no signs of distress appears calm and relaxed. On NC 2L tolerating well O2 sat 97%. Patient is AO x2 with periods of confusion. No episodes of restlessness this shift. Patient appears to be cooperative. Tele reading SR/ST 90-110bpm. Latest EKG on 1700 QTC [address]SD [address] Antunez with NNO. On FC tea color 2850ml the whole shift. Patient was transitioned from puree diet to mech soft tolerating well. LFA #22 running NS @ 150ml/hr. Removed restraints per doctor's order. Cont on ATB no signs of adverse reaction to medications. All due meds given. Vital signs within normal limits. Kept clean and comfortable. Safety measures reinforced. Call light within reach. Bed locked and on lowest position. Will endorse to shift stacker nurse.
[2019-08-31 20:00] VITALS: BP 126/75
[2019-09-01] VITALS: BP 130/77
[2019-09-01] MEDS: IV NS 0.9% 1,000 ML IV PRN (00:17)
[2019-09-01 04:00] VITALS: BP 146/83
--- NOTE | 2019-09-01 05:02 | NUR ---
TELE-1/LEASING PROFESSIONAL DR. ALATORRE PAGED REGARDING LATEST EKG RESULTS. AWAITING CALL BACK. WILL CONTINUE TO MONITOR.
--- NOTE | 2019-09-01 06:06 | NUR ---
TELE-1/TILE TRIMMER SPOKE WITH Vi AT POISON CONTROL CONTROL RECOMMENDED BOLUS OF SODIUM BICARB FOR FOR QRS DURATION 122. PAGED DR. ALATORRE AWAITING CALL BACK.
[2019-09-01] MEDS ORDERED: SODIUM BICARBONATE SYR 50 MEQ/50 ML DISP.SYRIN IV STA (06:11)
--- NOTE | 2019-09-01 06:15 | NUR ---
TELE-1/PERSONAL LINES INSURANCE AGENT DR. ALATORRE ORDERED 1 AMP BICARB PER POISON CONTROL RECOMMENDATION. CARRIED OUT.
--- NOTE | 2019-09-01 07:30 | NUR ---
Patient in bed, not in acute distress. Nj cath draining with yellow clear urine. Denies any pain or discomfort. Sitter at bedside. VS stable. Safety measures intact. rounding and ordered to D/C the Nj cath. Will cont to monitor
[2019-09-01 08:00] VITALS: BP 124/72
[2019-09-01] MEDS: CEFEPIME 2 GM in IV D5W 100 ML IV SCH ×2 (08:26→21:14)
[2019-09-01] MEDS: LORAZEPAM INJ 2 MG/ML VIAL IV PRN ×2 (08:26→16:29)
[2019-09-01] MEDS: PANTOPRAZOLE 40 MG VIAL IV SCH (08:26)
[2019-09-01] MEDS ORDERED: POTASSIUM CHLORIDE 20 MEQ TAB.PRT.SR PO SCH (11:00)
[2019-09-01] MEDS: PANTOPRAZOLE 40 MG TABLET.DR PO SCH (11:09)
[2019-09-01 12:00] VITALS: BP 136/82
[2019-09-01 16:00] VITALS: BP 122/64
--- NOTE | 2019-09-01 19:00 | NUR ---
Patients bhatti cath discontinued per MD orders. Patient still anxious and agitated, administered Ativan IV per orders.Sitter at bedside. Safety measures provided. patient on 72 hold and paged to make him aware. Will endorse to date night sitter RN
--- NOTE | 2019-09-01 19:15 | NUR ---
RN OPENING NOTE RECEIVED PT IN, APPEARS ANXIOUS/RESTLESS. AO X 2, WITH SITTER AT BEDSIDE. NO SOB NOTED. PATIENT'S BREATHING IS EVEN AND UNLABORED. PATIENT SATURATING >95% ON ROOM AIR. PATIENT ON TELE MONITOR READING SR TO ST, CURRENT HR 101, NOTED IV SITE ON LFA G22, NO S/S OF INFECTION OR INFILTRATION NOTED, SAFETY MEASURES IMPLEMENTED PER PROTOCOL. PATIENT BED ALARM IS ON. HEAD OF BED ELEVATED. BED IS LOCKED, IN LOWEST POSITION AND SIDE RAILS UPX2. CALL LIGHT WITHIN REACH OF THE PATIENT. WILL CONTINUE TO MONITOR AND REASSESS FOR ANY CHANGES.
--- NOTE | 2019-09-01 19:30 | NUR ---
RN NOTE PATIENT PULLED OUT IV LINE AND ATTEMPTED TO RAN OFF. CORPORATE INVESTIGATOR MADE AWARE. REPORTED TO MD. AWAITING MD ORDERS.
[2019-09-01 20:00] VITALS: BP 129/79
--- NOTE | 2019-09-01 20:30 | NUR ---
RN NOTE NOTED LFA IV LINE PULLED OUT. REINSERTED IV LINE G22 AT RIGHT HAND ASEPTICALLY, PATENT AND FLUSHING WELL. DUE MEDICATIONS GIVEN.
--- NOTE | 2019-09-01 22:30 | NUR ---
RN NOTE NOTED PATIENT STILL RESTLESS AND ANXIOUS. KEPT MOVING IN BED. ATTEMPTING TO REMOVE IV LINE. EXPLAINED IMPORTANCE OF MAINTAINING IV LINE. PRN ATIVAN 1 MG GIVEN ORDERED. WILL CONTINUE TO MONITOR.
[2019-09-02] VITALS: BP 123/77
[2019-09-02] MEDS: IV NS 0.9% 1,000 ML IV PRN ×2 (01:03→20:15)
[2019-09-02 04:00] VITALS: BP 129/81
--- NOTE | 2019-09-02 06:59 | NUR ---
RN CLOSING NOTE PATIENT IN BED, PER SITTER, PATIENT SLEPT FOR A FEW HOURS ONLY, BUT WAS UP SUPERVISOR POWDERED METAL. NO SIGN OF ACUTE DISTRESS. CALL LIGHT WITHIN REACH, SAFETY MEASURES IN PLACE, WILL ENDORSE TO MORNING RN FOR CONTINUATION OF CARE.
--- NOTE | 2019-09-02 07:40 | NUR ---
IMAGERY INTELLIGENCE OPENING NOTE RECEIVED PATIENT IN BED RESTING COMFORTABLY. PATIENT IN NO ACUTE DISTRESS. NO SOB NOTED. PATIENT BREATHING IS EVEN AND UNLABORED. PATIENT MAINTAINED ON A 1:1 SITTER. PATIENT BED ALARM IS ON. PATIENT SAFETY PRECAUTIONS IN PLACE. PATIENT BED IS LOCKED AND IN LOWEST POSITION. CALL LIGHT WITHIN REACH. WILL CONTINUE TO MONITOR.
[2019-09-02 08:00] VITALS: BP 156/72
[2019-09-02] MEDS: CEFEPIME 2 GM in IV D5W 100 ML IV SCH ×2 (09:21→20:15)
[2019-09-02] MEDS: PANTOPRAZOLE 40 MG TABLET.DR PO SCH (09:21)
[2019-09-02] MEDS ORDERED: buPROPion SR 100 MG TABLET.ER PO SCH (09:30)
--- NOTE | 2019-09-02 10:15 | NUR ---
MS RN NOTE PATIENT NOT ON RESTRAINTS DUE TO PATIENT WITH 1:1 SITTER.
--- NOTE | 2019-09-02 10:30 | NUR ---
COOKER SYRUP conducted chart review and consulted with José Luis in intake in regards to referring pt to [facility] behavioral health intake for psychiatric hospitalization since pt is on a 5150 hold.
--- NOTE | 2019-09-02 11:00 | NUR ---
spoke with abigail perinatal social worker recommend swab patient for covid since required for admission in psyche facility,obtained orders from dr. mclean,pt. transferred to rm 120--2 ,awaits swab results.sitter at bedside
[2019-09-02 12:00] VITALS: BP 138/78
--- NOTE | 2019-09-02 14:30 | NUR ---
Rn note Received pt from JOSEY Seymour Pt in bed, resting, A/Ox4 ,comfort needs are met, have sitter 1:1, no SOB noted, receiving IV fluids NS @150cc/hr through R wrist G22, skin is intact, iv line is patent bed in lowest position, call light within reach, will cont to monitor,
--- NOTE | 2019-09-02 14:41 | NUR ---
MS RN NOTE PATIENT IN BED RESTING COMFORTABLY. PATIENT IN NO ACUTE DISTRESS. NO SOB NOTED. PATIENT BREATHING IS EVEN AND UNLABORED. PATIENT WITH 1:1 SITTER. PATIENT BED IS LOCKED AND IN LOWEST POSITION. CALL LIGHT WITHIN REACH. GAVE REPORT AND ENDORSED ALL CARE TO SKY DOWLING FOR HERLINDA.
[2019-09-02 16:00] VITALS: BP 108/66
--- NOTE | 2019-09-02 17:17 | NUR ---
Spoke Erwin from Poison Control about pt, he asked about I/O and Vital signs, provided info, he will follow up tomorrow
--- NOTE | 2019-09-02 17:35 | NUR ---
RN NOTE Spoke to pt, pt stating he is not happy with new medication BUPROPION, because it's causing more hallucinations auditory and visual, denies hearing commands to hurt himself or others , reported more feelings of depressed mood, ask to spoke with the doctor about it.
--- NOTE | 2019-09-02 18:00 | NUR ---
Called DR CARDOSO, initiate FaceTime conversation with hi, and patient, doctor aware
--- NOTE | 2019-09-02 18:43 | NUR ---
RN CLOSING NOTES Pt remains in the bed with 1:1 Sitter in the room, no acute distress or SOB noted, skin is intact. A/Ox3, comfort needs are met, safety measures implemented, bed in lowest position, call light within reach, will endorse to cullet washer RN for steven
[2019-09-02 20:00] VITALS: BP 129/74
--- NOTE | 2019-09-02 20:00 | NUR ---
MS RN NOTE PT IN BED TALKING WITH SITTER. NO DISTRESS OR DISCOMFORT NOTED. DENIES PAIN. IVF NS AT 150 ML/HR INFUSING WELL, NO S/S OF INFILTRATION NOTED. PT IS CALM AND RELAXED. NO AGITATION NOTED. SIDE RAILS UP X 2 AND CALL LIGHT WITHIN REACH. VSS. CONTINUE TO MONITOR HIM.
[2019-09-02] MEDS: OLANZAPINE 5 MG/TAB.RAPDIS PO SCH (21:14)
[2019-09-03] MEDS: IV NS 0.9% 1,000 ML IV PRN (03:25)
--- NOTE | 2019-09-03 03:51 | NUR ---
WILLIAMS RN NOTES POISON CONTROL CALLED ASKED ABOUT EKG QRS WAS 122 HIGH THAN 120. INFORMED TO GIVE BICORNATE SODIUM. CHECK INITIAL VS 134/82 HR 69. PUSH WITHIN 5 MIN TOOK VITAL SIGN 137/82 HR 68. TOLERATED WELL
[2019-09-03 04:00] VITALS: BP 109/56
--- NOTE | 2019-09-03 04:03 | NUR ---
MS RN NOTE PT IN BED ASLEEP, NO DISTRESS OR DISCOMFORT NOTED. DENIES PAIN. IVF INFUSING WELL, NO S/S OF INFILTRATION NOTED.
--- NOTE | 2019-09-03 06:23 | NUR ---
MS RN NOTE PT IN BED ASLEEP, AROUSABLE. NO DISTRESS OR DISCOMFORT NOTED. DENIES PAIN. IVF INFUSING WELL, NO S/S INFILTRATION NOTED. ALL NEEDS ATTENDED. SIDE RAILS UP X 2 AND CALL LIGHT WITHIN REACH. WILL ENDORSE TO DAY SHIFT NURSE FOR CONTINUE TO CARE. SITTER AT BED SIDE.
--- NOTE | 2019-09-03 07:38 | NUR ---
WILLIAMS RN OPENING NO RECEIVED PT AROUSABLE AND RESTING. PT ON ROOM AIR. NO DISTRESS OR DISCOMFORT NOTED. DENIES PAIN. IVF INFUSING WELL, NO S/S INFILTRATION NOTED. SIDE RAILS UP X 2 AND CALL LIGHT WITHIN REACH. SITTER AT BED SIDE. WILL CONTINUE TO MONITOR.
[2019-09-03 08:00] VITALS: BP 117/74
[2019-09-03] MEDS: PANTOPRAZOLE 40 MG TABLET.DR PO SCH (08:43)
[2019-09-03] MEDS: OLANZAPINE 5 MG/TAB.RAPDIS PO SCH ×2 (08:43→22:30)
[2019-09-03] MEDS: CEFEPIME 2 GM in IV D5W 100 ML IV SCH ×2 (08:43→21:35)
--- NOTE | 2019-09-03 11:33 | NUR ---
RN HOUSE SUPERVISOR contacted [facility] in regards to f/u for psychiatric placement. Per Merrill, they are awaiting discharges at other hospitals and will f/u with SW. Merrill requested for a COVID test on the pt. RN HOUSE SUPERVISOR informed him pt did have a COVID test and is pending results at this time. RN HOUSE SUPERVISOR contacted pt's mother Almita . Mother requested for SW to contact her at 3PM since she is at work at the moment and gets off work at 2:30PM. RN HOUSE SUPERVISOR to f/u with mother at 3PM today.
[2019-09-03 12:00] VITALS: BP 117/63
--- NOTE | 2019-09-03 13:26 | NUR ---
HYDROGEN OPERATOR conducted chart review and called pt via face time due to PUI for COVID-19. Pt was evaluated by counseling department chair Anette on Thursday 08/31 and placed on a 5150 hold due to intentional Overdose and pt trying to AWOL from the hospital. HYDROGEN OPERATOR introduced self, explained the role of SW and purpose of the call. Pt was receptive to SW's call. Pt is alert and oriented x 4 to person, place, time and situation. Pt appears well groomed. Pt reports, he resides with his parents in [place]. Pt is taking general education classes at [employer]. Pt reports, he was feeling overwhelmed with school and gave up on school, the pandemic was causing him anxiety and decided to overdose on his medications. Pt reports, he has a therapist Keya at [facility] and his psychiatrist Dr. Raymond. Pt reported, he has a phone conversation with his therapist the day before his overdose. Pt has a history of psychiatric hospitalization with the most recent one in January 2019. Pt reports to have a psychiatric diagnosis of Schizoaffective Disorder. Dr. Durant, psychiatrist, evaluated the pt today and the pt informed Dr. Durant, he is feeling better and when I asked him about his suicide attempt, he said, "It was stupid", I will never do that again. Pt reports he is not interested in taking any antidepressants at this time but willing to take BuSpar and Zyprexa which have been prescribed by Dr. Durant, psychiatrist. Pt declined to take Wellbutrin. Pt also reported to HYDROGEN OPERATOR he is feeling better and denies suicidal and homicidal ideations at this time. Pt reports, he is looking forward to going home. Pt agrees to be compliant with taking his medications. Pt has a history of substance use/abuse. Pt's drug of choice was cocaine and marijuana. Pt reports, he has been sober since for the past 6 months. Pt also drank beer 6 months ago. Pt has no history of alcohol/drug treatment programs. [facility] offered pt mental health resources, however pt stated, he has the resources he can get from [facility]. Pt gave verbal consent for HYDROGEN OPERATOR to speak to his family regarding his discharge plan. [facility] updated WHIT Kendrick and Director Dr. Leigh with aforementioned information. Museum Host/Hostess is available for support as needed.
[2019-09-03] MEDS: busPIRone 5 MG TABLET PO SCH ×2 (13:40→16:41)
--- NOTE | 2019-09-03 14:37 | NUR ---
WILLIAMS RN NOTES POISON CONTROL CALL THEY WANT ANOTHER EKG DONE DUE TO QRST WAS MORE THAN 120. INFORMED DR RAYMOND.
--- NOTE | 2019-09-03 15:01 | NUR ---
DEVELOPER PROVER MECHANICAL contacted pt's mother Almita and informed her that pt is psychiatrically cleared by Dr. Durant to be discharged home today. Per mother, she will come to cotton picker the pt today between 6:30PM-7PM. DEVELOPER PROVER MECHANICAL reiterated with pt's mother the importance of scheduling an appointment with the pt's psychiatrist at [facility] for continuation of care. Mother to f/u with pt's psychiatrist. [facility] updated WILLIAMS WHIT Kendrick regarding pt's discharge plan. WHIT Kendrick to contact Dr. Durant for f/u. [facility] updated Dr. Leigh.
--- NOTE | 2019-09-03 15:35 | NUR ---
PER DR. JANAE ALMAZAN TO D/C HOLD ONCE MOTHER ARRIVED AND EFFICIENCY ANALYST PATIENT.
[2019-09-03 16:00] VITALS: BP 118/60
--- NOTE | 2019-09-03 16:01 | NUR ---
RESULT OF EKG RELAYED TO POISON CONTROL PER SEA HOLD DISCHARGE SINCE QRS IS 124 AND THEIR CRITERIA IS LESS THAN 120,FAXED AND RELAYED EKG RESULT TO DR. COX NO NEW ORDERS.DR. MANDI KINNEY AWAITS RESPONSE.
--- NOTE | 2019-09-03 16:03 | NUR ---
NURSING SUP. JENNIFER NOTIFIED.PER NSG. SUP. NEED TO FOLLOW POISON CONTROL PROTOCOL.
--- NOTE | 2019-09-03 16:43 | NUR ---
OBTAINED ORDERS TO HOLD DISCHARGE AND GIVE IAMP NA BICARB 50MEQ AND REPEAT EKG IN AM PER DR. RAYMOND,DR. COX MADE AWARE ,DR. CARDOSO MADE AWARE AND ORDER CONTINUE HOLD,PT. MOTHER NOTIFIED,CM AND SSW MADE AWARE. WILL CONTINUE TO FF.
--- NOTE | 2019-09-03 16:45 | NUR ---
PRIMARY RN AWARE OF NEW PLAN OF CARE,POISON COTERNIE OSEI MADE AWARE OF HOLD DISCHARGE AND MEDS GIVEN.NURSING SUP JENNIFER NOTIFIED.
[2019-09-03] MEDS ORDERED: SODIUM BICARBONATE SYR 50 MEQ/50 ML DISP.SYRIN IV ONE (17:00)
--- NOTE | 2019-09-03 17:43 | NUR ---
WILLIAMS RN OPENING NOTE: PATIENT IS IN BED RESTING. PT IS ON ROOM AIR. PT IS NPO. COVID TESTING STILL PENDING. NO SIGNS OF ACUTE DISTRESS NOTED. ALL THE NEEDS ARE MET. NO DISCHARGE YET. SAFETY MEASURES IMPLEMENTED, BED IN LOWEST POSITION, LOCKED, SIDE RAILS UP, CALL LIGHT WITHIN REACH. WILL ENDORSE TO AQUATICS SPECIALIST FOR HERLINDA Addendum: 09/03/19 at 1900 by LATOYA HOUSE RN WILLIAMS DOWLING NOTES PT IS ON REGULAR DIET
--- NOTE | 2019-09-03 18:57 | NUR ---
ACCOUNT SERVICES ASSOCIATE WITH IMPROVED QRS .12 ,VSS POST IVP NA BICARB.WILL CONTINUE TO MONITOR.
[2019-09-03 20:00] VITALS: BP_SYST 112; BP_SYST 119; BP_DIAS 65; BP_DIAS 95
--- NOTE | 2019-09-03 20:00 | NUR ---
RN OPENING NOTE PT RECEIVED IN BED RESTING COMFORTABLY. PT IS A/A O X4. NO S/S OF DISTRESS. PT IS ON SATING 100%. PT HAS SITTER. SAFETY MEASURES IN PLACE BED AT LOWEST POSITION, LOCKED, SIDE RAILS UP X2, CALL LIGHT IN REACH. WILL CONTINUE TO MONITOR.
[2019-09-04] VITALS: BP 103/55
[2019-09-04] MEDS: IV NS 0.9% 1,000 ML IV PRN ×2 (02:01→08:45)
[2019-09-04 04:00] VITALS: BP 113/64
--- NOTE | 2019-09-04 06:24 | NUR ---
RN NOTE EKG IS DONE. QTc is 443 and QRS 35.
--- NOTE | 2019-09-04 06:53 | NUR ---
RN CLOSING NOTE PT REMAINED STABLE DURING MY SHIFT. VITAL SIGNS STABLE ,NO ACUTE CHANGES. WILL ENDORSE TO INCOMING SHIFT NURSE FOR HERLINDA.
--- NOTE | 2019-09-04 07:30 | NUR ---
TELE/RN NOTE THE PATIENT IS RECEIVED IN BED. SITTER AT THE BEDSIDE. PATIENT IS ALERT AND ORIENTED X4. DENIES SI/HI. THE PATIENT IS IN ROOM AIR AND DENIES SOB. RESPIRATION REGULAR AND UNLABORED. DENIES PAIN. THE PATIENT IS IN NO APPARENT DISTRESS. RIGHT WRIST G 22 PATENT AND NS INFUSING AT 150ML/HR AND NO S/S INFILTRATION NOTED. BED LOW AND LOCKED. SIDE RAILS UP X2. WILL CONTINUE TO MONITOR.
[2019-09-04 08:00] VITALS: BP 112/59
[2019-09-04] MEDS: PANTOPRAZOLE 40 MG TABLET.DR PO SCH (08:40)
[2019-09-04] MEDS: CEFEPIME 2 GM in IV D5W 100 ML IV SCH (08:40)
[2019-09-04] MEDS: busPIRone 5 MG TABLET PO SCH ×2 (08:41→12:57)
[2019-09-04] MEDS: OLANZAPINE 5 MG/TAB.RAPDIS PO SCH ×2 (08:41→08:53)
[2019-09-04 12:00] VITALS: BP 116/67
--- NOTE | 2019-09-04 15:10 | NUR ---
RN NOTE WHILE CHECKING THE PATIENT`S BELONGING FOR DISCHARGE NOTED THE PATIENT PANTS, SHIFT AND UNDERWEAR IS MISSING (ALL LISTED ON THE BELONGING LIST 08/27/19). CHARGE NURSE SOON IS MADE AWARE. PATIENT REQUESTING PHONE CALL ONCE THE BELONGINGS ARE FOUND. CHARGE NURSE IS MADE AWARE.
--- NOTE | 2019-09-04 15:12 | NUR ---
RN NOTE SOPKE WITH DR CARDOSO AND PER THE PATIENT`S IS DISCONTINUED TODAY AND THE PATIENT MAY GET DISCHARGED TO HOME. ALSO, MD IS MADE AWARE THAT THE PATIENT REQUESTING PRESCRIPTIONS FOR ZYPREXA AND BUSPAR. PER HE WILL FAX THE ORDER TO THE HOSPITAL TO BE GIVEN TO THE PATIENT.
--- NOTE | 2019-09-04 15:15 | NUR ---
RN NOTE RECEIVED PRESCRIPTION FAX FROM DR CARDOSO. COPY SAVED IN THE CHARGE AND THE ORIGINAL FAX HANDED TO THE PATIENT. MEDICATION EDUCATION PROVIDED AND THE PATIENT VERBALIZED UNDERSTANDING.
--- NOTE | 2019-09-04 15:40 | NUR ---
RN NOTE THE PATIENT IS ALERT AND ORIENTED X4. DENIES SOB. RESPIRATION REGULAR AND UNLABORED. OXYGEN SATURATION IN ROOM AIR IS AT 97%. DENIES PAIN. THE PATIENT IS IN NO APPARENT DISTRESS. PATIENT DENIES SI/HI. THE PATIENT IS GIVEN DISCHARGE EDUCATION AND HE VERBALIZED UNDERSTANDING. THE PATIENT LEFT THE HOSPITAL IN STABLE CONDITION ACCOMPANIED BY HIS MOTHER.
== END 2019-09-04 15:39 | disposition home or self-care (01) | DRG 817 ==
LOC: ER 17:56 → ICU 21:16 → TELE-TD 22:22 → TELE1 08-29 09:41 → MEDSG1 09-02 08:52 → TELE1 09-03 19:39
PROVIDERS: ATTEND Internal Medicine
DX: T43.592A Poisoning by other antipsychotics and neuroleptics, intentional self-harm, initial encounter (principal); J69.0 Pneumonitis due to inhalation of food and vomit; G92 Toxic encephalopathy; D72.829 Elevated white blood cell count, unspecified; Z88.0 Allergy status to penicillin; Z91.5 Personal history of self-harm; Y92.009 Unspecified place in unspecified non-institutional (private) residence as the place of occurrence of the external cause; Z79.899 Other long term (current) drug therapy; T43.593A Poisoning by other antipsychotics and neuroleptics, assault, initial encounter; T43.223A Poisoning by selective serotonin reuptake inhibitors, assault, initial encounter; F31.9 Bipolar disorder, unspecified; F25.9 Schizoaffective disorder, unspecified; I45.81 Long QT syndrome
CPT/HCPCS: 36415; 71045-TC; 80048-TC; 80053-TC; 80061-TC; 80076-TC; 80305; 81000-TC; 82310-TC; 82550-TC; 83735-TC; 84100-TC; 84132-TC; 84443-TC; 84484-TC; 85025-TC; 87081-TC; 92611-TC; 93307-TC; 95819-TC; A9563; C9113; G0378; G0480; J0610; J0692; J2060; J2405; J2543; J3475; J3480; J3490; J7030; J7050; J7060; U0003-CS

== ENCOUNTER 2020-01-30 14:30 | Emergency (ER) | payer OTHER ==
[~2020-01-30] VITALS: Ht 167.6 cm; Wt 86.2 kg
[~2020-01-30 14:30] MED LIST: HYDR-500 MT; SERT50TA12 MT
[2020-01-30 14:59] VITALS: BP 147/73
--- NOTE | 2020-01-30 15:18 | NUR ---
Patient discharged to home in stable condition. Written and verbal after care instructions given. Patient verbalizes understanding of instruction.
== END 2020-01-30 15:18 | disposition home or self-care (01) ==
LOC: ER 14:33
DX: Z76.0 Encounter for issue of repeat prescription (principal); F41.9 Anxiety disorder, unspecified; F20.9 Schizophrenia, unspecified; F31.9 Bipolar disorder, unspecified; Z88.0 Allergy status to penicillin; Z79.899 Other long term (current) drug therapy

== ENCOUNTER 2021-09-28 11:45 | Emergency (ER) | payer OTHER ==
[~2021-09-28] VITALS: Ht 170.2 cm; Wt 83.0 kg
[2021-09-28 12:01] VITALS: BP 146/65
--- NOTE | 2021-09-28 12:10 | NUR ---
BIBS FOR C/O HEARING LOSS/CLOGGED TO R EAR X 3 DAYS. DENIES PAIN. WILL CONTINUE TO MONITOR THE PATIENT.
[2021-09-28] MEDS ORDERED: CARBAMIDE PEROXIDE OTIC 15 ML BOTTLE ONE (14:29)
[2021-09-28] MEDS ORDERED: CARBAMIDE PEROXIDE OTIC 15 ML BOTTLE OT ONE (14:30)
--- NOTE | 2021-09-28 15:20 | NUR ---
Patient discharged to home in stable condition. Written and verbal after care instructions given. Patient verbalizes understanding of instruction.
== END 2021-09-28 15:21 | disposition home or self-care (01) ==
LOC: ER 11:49
DX: H61.21 Impacted cerumen, right ear (principal); F20.0 Paranoid schizophrenia; Z88.0 Allergy status to penicillin; Z79.899 Other long term (current) drug therapy

== ENCOUNTER 2024-03-09 16:10 | Emergency (ER) | payer BC, OTHER ==
[~2024-03-09] VITALS: Ht 167.6 cm; Wt 70.3 kg
[2024-03-09 16:39] LABS: BASOPHILS # (AUTO) 0.1 K/uL (0.0-0.2); BASOPHILS % (AUTO) 0.7 % (0.0-2.0); EOSINOPHILS # (AUTO) 0.1 K/uL (0.0-0.7); EOSINOPHILS % (AUTO) 1.3 % (0.0-6.0); HEMATOCRIT 40 % (39-51); HEMOGLOBIN 14.2 g/dL (13.5-17.5); LYMPHOCYTES # (AUTO) 1.9 K/uL (0.8-4.8); LYMPHOCYTES % (AUTO) 19.4 % (20.0-44.0); MEAN CORPUSCULAR HEMOGLOBIN 31 PG (26.0-33.0); MEAN CORPUSCULAR HGB CONC 35 g/dl (31.0-36.0); MEAN CORPUSCULAR VOLUME 89 fL (80-96); MONOCYTES # (AUTO) 0.8 K/uL (0.1-1.30); MONOCYTES % (AUTO) 7.8 % (2.0-12.0); NEUTROPHILS % (AUTO) 70.8 % (43.0-81.0); PLATELET COUNT (AUTO) 278 K/uL (150-450); RED BLOOD CELL COUNT(AUTO) 4.53 MIL/uL (4.5-6.0); WHITE BLOOD COUNT (AUTO) 9.9 K/uL (4.3-11.0)
[2024-03-09 17:06] LABS: APPEARANCE,URINE CLEAR (CLEAR); BILIRUBIN,URINE NEGATIVE (NEGATIVE); BLOOD, URINE NEGATIVE Ery/uL (NEGATIVE); COLOR,URINE YELLOW (YELLOW); KETONES,URINE TRACE mg/dL (NEGATIVE); LEUKOCYTE ESTERASE ,URINE NEGATIVE (NEGATIVE); NITRITE, URINE NEGATIVE (NEGATIVE); PROTEIN,URINE TRACE mg/dl (NEGATIVE); UGLUCOSE NEGATIVE (NEGATIVE); UROBILINOGEN,URINE 0.2 EU/dL (0.2)
[2024-03-09 17:20] LABS: AMPHETAMINE, URINE NEGATIVE (NEGATIVE); BARBITURATE, URINE NEGATIVE (NEGATIVE); BENZODIAZEPINE, URINE NEGATIVE (NEGATIVE); CANNABINOID, URINE NEGATIVE (NEGATIVE); COCCAINE, URINE NEGATIVE (NEGATIVE); OPIATE, URINE NEGATIVE (NEGATIVE); PHENCYCLIDINE SCREEN,URINE NEGATIVE (NEGATIVE)
[2024-03-09 17:39] LABS: ALANINE AMINOTRANSFERASE 52 U/L (12-78); ALBUMIN 4.4 g/dL (3.4-5.0); ALCOHOL, BLOOD < 3 mg/dL (0-10); ALKALINE PHOSPHATASE 114 U/L (46-116); ASPARTATE AMINOTRANSFERASE 20 U/L (15-37); BILIRUBIN,DIRECT 0.1 mg/dL (0.0-0.2); BILIRUBIN,TOTAL 0.3 mg/dL (0.2-1.0); CALCIUM, SERUM 8.9 mg/dL (8.5-10.1); CARBON DIOXIDE 24 mmol/L (21-32); CHLORIDE 103 mmol/L (98-107); CREATININE 0.9 mg/dL (0.6-1.3); GLUCOSE 115 mg/dL (74-106); POTASSIUM 3.9 mmol/L (3.5-5.1); SALICYLATE 3.2 mg/dL (2.8-20.0); SODIUM SERUM 138 mmol/L (136-145); TOTAL PROTEIN, SERUM 8.3 g/dL (6.4-8.2); UREA NITROGEN, BLOOD 13 mg/dL (7-18)
[2024-03-09 17:40] LABS: ACETAMINOPHEN <10 ug/ml (10-30)
[2024-03-09 17:51] LABS: ADD URINE CULTURE NO; BACTERIA,URINE None seen /HPF (None Seen); CALCIUM OXALATE CRYSTALS,UR Few /HPF (None Seen); MUCUS,URINE Few /LPF (None Seen); RBC,URINE 0-2 /HPF (0-2); SQUAMOUS EPITHELIAL CELL,UR 0-2 /HPF (None Seen); WBC,URINE 0-2 /HPF (0-3)
[2024-03-09] MEDS: HALOPERIDOL 1 MG TABLET PO ONE (20:00)
[2024-03-09] MEDS ORDERED: HALOPERIDOL 5 MG TABLET ONE (20:04)
[2024-03-10 00:22] VITALS: BP 134/73; TEMP 98.1; O2SAT 100
== END 2024-03-10 01:35 ==
LOC: ER 16:15
DX: R45.851 Suicidal ideations (principal); F20.0 Paranoid schizophrenia; F31.9 Bipolar disorder, unspecified; F19.10 Other psychoactive substance abuse, uncomplicated; Z88.0 Allergy status to penicillin; Z20.822 Contact with and (suspected) exposure to COVID-19
CPT/HCPCS: 36415; 80048-TC; 80076-TC; 81001; 85025-TC; G0480